=== PATIENT | male | born 1995 | race African-American/Black ===

== ENCOUNTER 2021-07-03 09:32 | Emergency (ER) | payer OTHER ==
[~2021-07-03] VITALS: Ht 172.7 cm; Wt 72.6 kg
[2021-07-03 11:12] VITALS: BP 120/74
== END 2021-07-03 12:54 | disposition home or self-care (01) ==
LOC: ER 09:32
DX: J06.9 Acute upper respiratory infection, unspecified (principal); J02.9 Acute pharyngitis, unspecified; Z20.822 Contact with and (suspected) exposure to COVID-19
CPT/HCPCS: 36415; 87426

== ENCOUNTER 2023-01-23 12:02 | Emergency (ER) | payer MEDICAID ==
[~2023-01-23] VITALS: Ht 172.7 cm; Wt 71.7 kg
[2023-01-23] MEDS ORDERED: DOXY-286 PO (16:04)
[2023-01-23] MEDS ORDERED: cefTRIAXone W LIDOCAINE 500 MG IM IM ONE ×2 (16:15→17:00)
[2023-01-23 17:07] LABS: Urine Bacteria FEW /hpf (None Seen); Urine Blood Negative /uL (Negative); Urine Mucus FEW (None Seen); Urine Specific Gravity 1.028 (1.001-1.035); Urine WBC 256 /hpf (0 - 3)
[2023-01-23] MEDS ORDERED: CEFP100T6 PO (17:16)
[2023-01-23 17:44] VITALS: BP 100/58; PULSE 60; RESP 16; O2SAT 97
== END 2023-01-23 17:46 | disposition home or self-care (01) ==
LOC: ER 12:02
DX: D70.8 Other neutropenia (principal); N39.0 Urinary tract infection, site not specified; R36.9 Urethral discharge, unspecified; Z79.2 Long term (current) use of antibiotics; Z79.899 Other long term (current) drug therapy
CPT/HCPCS: 81001; 86703; 87491; 87591; 96372; 99283; J0696

== ENCOUNTER 2024-06-12 15:20 | Emergency (ER) | payer MEDICAID ==
[~2024-06-12] VITALS: Ht 172.7 cm; Wt 68.0 kg
[~2024-06-12 15:20] MED LIST: CEFP100T6 PO; DOXY-286 PO
[2024-06-12 16:33] VITALS: BP 118/60; PULSE 90; RESP 18; TEMP 99.9; O2SAT 98
[2024-06-12] MEDS ORDERED: PENI500T2 PO (16:52)
[2024-06-12] MEDS ORDERED: GUAI1SOL3 PO (16:52)
[2024-06-12] MEDS ORDERED: PROM1SOL4 PO (16:53)
--- NOTE | 2024-06-12 16:53 | ED.PDOC ---
Eye-HPI HPI Comments 28-YEAR-OLD MALE WITH NO PERTINENT MHX PRESENTS WITH A CHIEF COMPLAINT OF THROAT PAIN X2 DAYS. NOT TAKEN MEDICATIONS AT THIS TIME. DENIES ANY SICK CONTACTS. DENIES CHEST PAIN SHORTNESS OF BREATH DENIES INABILITY TO MOVE NECK, HISTORY OF MENINGITIS DENIES DIFFICULTY SWALLOWING NOR PERSISTENT SALIVATION DENIES FEVERS CHILLS NIGHT SWEATS DENIES PERSISTENT COUGH, RUNNY NOSE, CONGESTION DENIES LOSS OF APPETITE, UNINTENTIONAL WEIGHT LOSS OVER THE PAST 3 MONTHS DENIES VOICE CHANGES DENIES HISTORY OF ASTHMA OR SEASONAL ALLERGIES Chief Complaint: Sore Throat Time Seen by MD: 16:23 Primary Care Provider: NONE Reviewed Notes: Nurses Notes, Medications, Allergies Allergies: Coded Allergies: No Known Drug Allergy (Verified Allergy, Unknown, 07/03/21) Home Meds Active Scripts Cefpodoxime Proxetil (Cefpodoxime Proxetil) 100 Mg Tab, 200 MG PO BID for 10 Days, #40 TAB 0 Refills Prov:RENEE BOB NP 01/23/23 Doxycycline Hyclate (DOXYCYCLINE HYCLATE) 100 Mg Tab, 100 MG PO BID for 10 Days, #20 TAB 0 Refills Prov:RENEE BOB APPRAISER 01/23/23 Information Source: Patient Mode of Arrival: Ambulatory Past Medical History PAST MEDICAL HISTORY: Denies Surgical History: Denies all surgeries Family History Family History: Unknown Social History Smoker: Non-Smoker Alcohol: Denies ETOH Use Drugs: Denies Drug Use Lives In: Home All Other Systems: Reviewed and Negative (Per HPI) Physical Exam General Appearance: No Apparent Distress, Normal HEENT: Normal ENT Inspection, Pharynx Normal (no tonsilar exudate), TMs Normal Neck: Full Range of Motion, Non-Tender, Normal, Normal Inspection Respiratory: Chest Non-Tender, Lungs Clear, No Accessory Muscle Use, No Respiratory Distress, Normal Breath Sounds Cardiovascular: No Edema, No JVD, No Murmur, No Gallop, Normal Peripheral Pulses, Regular Rate/Rhythm Breast Exam: Deferred Gastrointestinal: No Organomegaly, Non Tender, No Pulsatile Mass, Normal Bowel Sounds, Soft Genitalia: Deferred Pelvic: Deferred Rectal: Deferred Extremities: No calf tenderness, Normal capillary refill, Normal inspection, Normal range of motion, Non-tender, No pedal edema Musculoskeletal : Apperance: Normal Neurologic: Alert, suture gauger II-XII nml as Tested, No Motor Deficits, Normal Affect, Normal Mood, No Sensory Deficits Cerebellar Function: Normal Reflexes: Normal Skin: Dry, Normal Color, Warm Lymphatic: No Adenopathy Was a procedure done? Was a procedure done?: No EENT DIFF Eye: Other Sore Throat: Viral Pharyngitis, URI X-Ray, Labs, Meds, VS Vital Signs Date Time Temp Pulse Resp B/P (MAP) Pulse Ox O2 Delivery O2 Flow Rate FiO2 06/12/24 16:33 90 18 98 Room Air 06/12/24 16:33 99.9 90 18 118/60 (79) 98 99.9 06/12/24 16:09 99.8 93 18 115/48 (70) 96 X-Ray, Labs, Meds, VS Comment Exam/test findings consistent with strep throat infection. Advised to complete full course of prescribed antibiotics Encouraged fluid intake Acetaminophen to reduce pain/fever NSAIDs to reduce pain/fever Nonpharmacological recommendations given Warm salt water gargles Throat lozenges Humidified air Patient is stable for discharge at this time. External notes reviewed. Test results and diagnostic imaging interpreted. All diagnostic findings, discharge care, education and instructions provided Follow-up with PCP in 2 to 3 days Patient verbalized understanding and agreed to treatment plan Vital signs stable, afebrile, no acute distress noted Patient ambulatory with strong steady gait Advised to return precautions for any new or worsening symptoms, return to ER immediately for re-evaluation Patient is aware that the purpose of this visit was for an acute medical emergency requiring emergent stabilization. Chronic conditions, including malignancies have not been ruled out. Patient is instructed to follow up with PCP as directed and discharge instructions for continued care and workup. If unable to arrange follow-up, patient is to return to the emergency department for reassessment. Patient (parent or legal guardian if applicable) was given verbal and written discharge instructions and acknowledges understanding. Time of 1ST Reevaluation: 16:47 Reevaluation 1ST: Improved Patient Education/Counseling: Diagnosis, Treatment Family Education/Counseling: Diagnosis, Treatment Departure 1 Departure Time of Disposition: 16:49 Impression: Primary Impression: Pharyngitis Qualified Codes: J02.9 - Acute pharyngitis, unspecified Disposition: 01 HOME / SELF CARE / HOMELESS Condition: Stable e-Prescriptions Promethazine-Dm (Promethazine Dm 6.25-15 mg/5Ml) 1 Tamika Tamika 5 ML PO TIDP PRN for 10 Days, #150 ML 0 Refills Prov: RENEE BOB NP 06/12/24 Penicillin V Potassium (Veetids) 500 Mg Tab 1 TAB PO BID for 10 Days, #20 TAB 0 Refills Prov: RENEE BOB NP 06/12/24 Discharged With: Self Critical Care Note Critical Care Time?: No Stability Stability form required: No Heart Score Heart Score: Heart Score Response (Comments) Value History N/A 0 EKG N/A 0 Age N/A 0 Risk Factors N/A 0 Troponin N/A 0 Total 0 RENEE BOB NP Jun 12, 2024 16:53
== END 2024-06-12 17:04 | disposition home or self-care (01) ==
LOC: ER 15:20
DX: J02.9 Acute pharyngitis, unspecified (principal)

== ENCOUNTER 2024-06-23 20:17 | Emergency (ER) | payer MEDICAID ==
[~2024-06-23] VITALS: Ht 172.7 cm; Wt 73.9 kg
[~2024-06-23 20:17] MED LIST changes: +PENI500T2 PO; +PROM1SOL4 PO
[2024-06-23] MEDS ORDERED: METH4PAK PO (23:24)
--- NOTE | 2024-06-23 23:24 | ED.PDOC ---
Eye-HPI HPI Comments This is a 28-year-old male presents to the ED chief complaint sore throat x2 weeks patient states he was recently seen at urgent care and requested codeine for his throat pain states the pharmacy did not have it in the urgent care did not send it. He notes a strep swab was done was negative. Complaining of throat pain 8/10 on pain scale burning in nature worse with swallowing.. Dad denies chest pain, difficulty breathing, difficulty swallowing fevers chills nausea or vomiting. Chief Complaint: Sore Throat Time Seen by MD: 20:24 Primary Care Provider: NONE Reviewed Notes: Nurses Notes, Medications, Allergies Allergies: Coded Allergies: No Known Drug Allergy (Verified Allergy, Unknown, 07/03/21) Home Meds Active Scripts Methylprednisolone (Medrol Dosepak) 4 Mg Parth, 4 MG PO UD for 6 Days, #21 TAB UAD Prov:LIS FLORES [employer] 06/23/24 Promethazine-Dm (Promethazine Dm 6.25-15 mg/5Ml) 1 Tamika Tamika, 5 ML PO TIDP PRN for 10 Days, #150 ML 0 Refills Prov:RENEE BOB NP 06/12/24 Penicillin V Potassium (Veetids) 500 Mg Tab, 1 TAB PO BID for 10 Days, #20 TAB 0 Refills Prov:RENEE BOB NP 06/12/24 Cefpodoxime Proxetil (Cefpodoxime Proxetil) 100 Mg Tab, 200 MG PO BID for 10 Days, #40 TAB 0 Refills Prov:RENEE BOB NP 01/23/23 Doxycycline Hyclate (DOXYCYCLINE HYCLATE) 100 Mg Tab, 100 MG PO BID for 10 Days, #20 TAB 0 Refills Prov:RENEE BOB NP 01/23/23 Information Source: Patient Mode of Arrival: Ambulatory Past Medical History PAST MEDICAL HISTORY: Denies Surgical History: Denies all surgeries Family History Family History: Reviewed,noncontributory to illness, Unknown Social History Smoker: Non-Smoker Alcohol: Denies ETOH Use Drugs: Denies Drug Use Lives In: Home EENTM: reports: throat pain; denies: blurred vision, double vision, ear bleeding, ear discharge, ear drainage, ear pain, ear ringing, eye pain, eye redness, hearing loss, mouth pain, mouth swelling, nasal discharge, nose bleeding, nose congestion, nose pain, photophobia, tearing, throat swelling, voice changes, others Respiratory: denies: cough, hemoptysis, orthopnea, SOB at rest, shortness of breath, SOB with excertion, stridor, wheezing, others Cardiovascular: denies: chest pain, dizzy spells, diaphoresis, Dyspnea on ex ertion, edema, irregular heart beat, left arm pain, lightheadedness, palpitations, PND, syncope, others Gastrointestinal: denies: abdomen distended, abdominal pain, blood streaked bowels, constipated, diarrhea, dysphagia, difficulty swallowing, hematemesis, melena, nausea, poor appetite, poor fluid intake, rectal bleeding, rectal pain, vomiting, others Genitourinary: denies: burning, dysuria, flank pain, frequency, hematuria, incontinence, penile discharge, penile sore, pain, testicle pain, testicle swelling, urgency, others Neurological: denies: dizziness, fainting, headache, left sided numbness, left sided weakness, numbness, paresthesia, pre-existing deficit, right sided numbness, right sided weakness, seizure, speech problems, tingling, tremors, weakness, others Musculoskeletal: denies: back pain, gout, joint pain, joint swelling, muscle pain, muscle stiffness, neck pain, others Integumetry: denies: bruises, change in color, change in hair/nails, dryness, laceration, lesions, lumps, rash, wounds, others Allergic/Immunocompromised: denies: Difficulty Healing, Frequent Infections, Hives, Itching, others Hematologic/Lymphatic: denies: anemia, blood clots, easy bleeding, easy bruising, swollen glands, others Endocrine: denies: excessive hunger, excessive sweating, excessive thirst, excessive urination, flushing, intolerance to cold, intolerance to heat, unexplained weight gain, unexplained weight loss, others Psychiatric: denies: anxiety, bipolar disorder, depression, hopeless, panic disorder, schizophrenia, sleepless, suicidal, others Physical Exam General Appearance: No Apparent Distress, Normal HEENT: Pharyngeal Erythema, TMs Normal, Other (Tonsils grade 1 without exudate) Neck: Full Range of Motion, Non-Tender Respiratory: Lungs Clear, No Accessory Muscle Use, No Respiratory Distress, Normal Breath Sounds Cardiovascular: No Murmur, Normal Peripheral Pulses, Regular Rate/Rhythm Breast Exam: Deferred Gastrointestinal: No Organomegaly, Non Tender, No Pulsatile Mass, Normal Bowel Sounds, Soft Genitalia: Deferred Pelvic: Deferred Rectal: Deferred Extremities: Normal capillary refill, Normal inspection, Normal range of motion, Non-tender, No pedal edema Musculoskeletal : Apperance: Normal Neurologic: Alert, sports internship II-XII nml as Tested, No Motor Deficits, Normal Affect, Normal Mood, No Sensory Deficits Cerebellar Function: Normal Reflexes: Normal Skin: Dry, Normal Color, Warm Lymphatic: No Adenopathy Was a procedure done? Was a procedure done?: No EENT DIFF Eye: N/A Sore Throat: Streptococcal X-Ray, Labs, Meds, VS Vital Signs Date Time Temp Pulse Resp B/P (MAP) Pulse Ox O2 Delivery O2 Flow Rate FiO2 06/23/24 23:29 82 17 96 Room Air 06/23/24 23:29 97.9 82 17 118/56 (76) 96 97.9 06/23/24 20:50 98.1 77 16 113/72 (86) 98 X-Ray, Labs, Meds, VS Comment Patient given Decadron 10 mg IM and promethazine with codeine p.o. reports improvement pain requesting discharge at this time. Script Medrol Dosepak advised to start in 2 days if symptoms continue. Follow up with his PCP in 2-3 days as necessary. Advised to rest increase p.o. fluids with electrolytes consider popsicles and warm water salt gargles. ER return precautions given patient indicated understanding and agrees with discharge plan of care. Time of 1ST Reevaluation: 23:23 Reevaluation 1ST: Improved Patient Education/Counseling: Diagnosis, Treatment, Prognosis, Need For Follow Up Family Education/Counseling: No Family Present Departure 1 Departure Time of Disposition: 23:23 Impression: Primary Impression: Pharyngitis Qualified Codes: J02.9 - Acute pharyngitis, unspecified Disposition: HOME / SELF CARE / HOMELESS Condition: Stable e-Prescriptions Methylprednisolone (Medrol Dosepak) 4 Mg Parth 4 MG PO UD for 6 Days, #21 TAB UAD Prov: LIS FLORES 06/23/24 Discharged With: Self Critical Care Note Critical Care Time?: No Stability Stability form required: LIS aBhena Jun 23, 2024 23:24
[2024-06-23 23:29] VITALS: BP 118/56; PULSE 82; RESP 17; TEMP 97.9; O2SAT 96
[2024-06-23] MEDS: PROMETHAZINE W/CODEINE 5 ML ORAL SYRUP PO ONE (23:55)
[2024-06-23] MEDS: DexAMETHasone SOD PHOS 10MG/1ML VIAL INJ IM ONE (23:55)
== END 2024-06-24 00:11 | disposition home or self-care (01) ==
LOC: ER 20:17
DX: J02.9 Acute pharyngitis, unspecified (principal); Z79.899 Other long term (current) drug therapy
CPT/HCPCS: 96372; 99283; J1100